=== PATIENT | female | born 1955 | race Caucasian/White ===

== ENCOUNTER 2018-05-13 09:30 | Day surgery (SDC) | payer OTHER, SELFPAY ==
--- NOTE | 2018-05-09 14:50 | PM.PREOP ---
Pre-operative Note Interval Note History & Physical reviewed/Exam performed by Physician: Yes Changes to H&P: No
--- NOTE | 2018-05-09 14:55 | P.OP_ITS ---
Operative Date/Time/Diagnoses Date of procedure: 05/13/18 Time of procedure: 11:45 Procedure & Clinicians Procedure: Preoperative diagnoses:1. Advanced left nuclear sclerotic and cortical cataract. 2. Need for capsular dye to improve safety. 2. Peripheral iridotomy with anterior synechiae. 3. Narrow angle with short axial length creating higher risk for cataract surgery complications. Postoperative diagnoses:1. Complex cataract removed by phacoemulsification with placement of posterior chamber intraocular lens. 2. Anterior synechialysis. Procedure: Phacoemulsification with posterior chamber intraocular lens implant. Surgeon: Kelly Castaneda MD. Complications: None. Specimen: None Implant: ZCBOO +26.5 Blood loss: None Anesthesia: Retrobulbar with monitored standby Description of procedure: Patient presents with a complaint of decreased vision due to cataract which is affecting activities of daily living. The patient wants surgery to improve vision.The patient was taken to the operating room and given IV sedation. A retrobulbar block consisting of 6 cc of 2% xylocaine without epinephrine mixed half and half with 0.5% Marcaine with 1 cc of hyaluronidase added is placed between the medial and lateral 1/3 of the inferior orbital rim. Lid akinesia is obtain with 1% xylocaine with epinephrine infiltrated along the lid margin. The eye is manually massaged for 30 sec, prepped using Betadine solution, and draped in the usual sterile f ashion.Temporal approach was made, a 1 mm side-port incision was made 90? from the proposed clear corneal incision position. Phenylephrine 1.5% mixed with 1% xylocaine 0.2 cc was placed into the anterior chamber. Many courses of dilating drops have broken the anterior synechia lysis of there is pigment on the anterior capsule in a mature lens. Therefore an air bubble was placed and Visudyne capsular dye is placed into the anterior chamber. BSS irrigation she reports used to remove excess dye. Viscoat followed by Vesta was then placed. A 2.6 mm clear incision with a 2.6 mm blade was placed. A 360 degree capsulorrhexis style capsulotomy was then performed with a cystitome needle on a Healon aided by the capsular dye.. Hydrodelineation and hydrodissection were performed. The phacoemulsification unit is introduced, and sculpting notice used to groove the central lens. There is a narrow anterior chamber. The lens is then removed in chopping mode. Epi nucleus is removed with epinuclear mode and irrigation aspiration was used to remove the peripheral cortex. There was no pseudoexfoliation but a short axial length was present. No complications. The posterior capsule is polished. The intraocular lens is selected, inspected, power confirmed, and placed in the posterior chamber. The pupil was constricted with Miostat. The wound was stromally hydrated and tested for leaks, there was none and it was left sutureless. Vigamox 0.1 cc was placed into the anterior chamber. Kenalog 0.2 cc was placed in the superior subconjunctival space. A drop of antibiotic and was placed and the eye was patched and shielded. The patient was stable and returned to the recovery room in excellent condition.Dictated by: Kelly Castaneda MD Copy to: [facility]
[2018-05-13] MEDS: PROPARACAINE 0.5% OPHTH SOL 2 DROPS EYE-OP (10:45)
[2018-05-13] MEDS: CATARACT EYE COMPOUND (10 DROPS/SYRINGE) 3 DROPS EYE-OP (11:02)
[2018-05-13 11:03] VITALS: BP 134/82; PULSE 78; RESP 15; TEMP 36.3; O2SAT 99; BMI 26.5
[2018-05-13] MEDS: BALANCED SALT IRRIG SOLN NO.2 500 ML, EPINEPHrine 1 MG IRR (12:20)
[2018-05-13] MEDS: OFLOXACIN 0.3% OPHTH 5 ML 2 DROPS EYE-LEFT (12:21)
[2018-05-13] MEDS: NEOMYCIN/POLY/DEX OPHTH OINT 1 APPLIC EYE-LEFT (12:21)
[2018-05-13] MEDS: PHENYLEPHRINE/LIDOCAINE VIAL (OR) 0.2 ML EYE-OP (12:21)
[2018-05-13] MEDS: TRYPAN BLUE 0.5 ML SYRINGE INJ (12:21)
[2018-05-13] MEDS: MOXIFLOXACIN OPHTH DROPS 3 ML BOTTLE 2 DROPS INJ (12:22)
[2018-05-13] MEDS: TRIAMCINOLONE 50 MG/5 ML VIAL INJ (12:22)
[2018-05-13] MEDS: HYALURONATE SODIUM 10 MG/ML SYRINGE INJ (12:23)
[2018-05-13] MEDS: CHONDROIDTIN/SOD HYALURONATE 1.05 ML SYRINGE INTRAOCULA (12:23)
[2018-05-13] MEDS: LIDOCAINE 1% W/EPI INJ 20 ML INJ (12:24)
[2018-05-13] MEDS: BALANCED SALT IRRIG SOLN NO.2 15 ML IRR (12:24)
[2018-05-13] MEDS: CARBACHOL 1.5 ML VIAL INJ (12:24)
[2018-05-13] MEDS: LIDOCAINE 2% 4 ML, BUPIVACAINE 0.5% (PF) 4 ML, HYALURONIDASE 150 UNIT INJ (12:25)
[2018-05-13 12:48] VITALS: BP 133/84; PULSE 64; RESP 15; TEMP 36.4; O2SAT 100
[2018-05-13 13:07] VITALS: BP 134/76; PULSE 72; RESP 16; TEMP 37.1; O2SAT 99
== END 2018-05-13 13:11 | disposition home or self-care (01) ==
LOC: OR 09:33
PROVIDERS: PCP Family Medicine; Visit Provider Ophthalmology
PROC: (CPT 66982; principal; 2018-05-13 11:45)
DX: H25.812 Combined forms of age-related cataract, left eye (principal); H21.51 Anterior synechiae (iris); H40.032 Anatomical narrow angle, left eye
CPT/HCPCS: 66982; J0171; J3301; J3470